=== PATIENT | male | born 2000 | race African-American/Black ===

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

== ENCOUNTER 2021-07-04 22:56 | Emergency (ER) | payer MEDICAID, OTHER ==
[2021-07-04] MEDS ORDERED: ACETAMINOPHEN 500 MG TAB (TYLENOL) PO ONE (23:15)
--- NOTE | 2021-07-04 23:19 | ED General ---
General Chief Complaint: Cough/Cold/Flu Symptoms Stated Complaint: HEADACHE/CHILLS/HIGH FEVER Nursing Triage Note: Pt complaining of a headache, chills and sore throat that started this morning. Source of Information: Patient Exam Limitations: No Limitations History of Present Illness Date Seen by Provider: Jul 04, 2021 Time Seen by Provider: 23:00 Initial Comments Healthy 20-year-old male coming into the ER due to 1 day of chills, sore throat, and headache. Sore throat is mild, constant, scratchy, and nothing seems to make it better or worse. He has not taken any medications such as ibuprofen or Tylenol. He says his friend just tested positive for Covid. He was in a car with him all the way to [place] just a couple days ago going to the [employer]. Denies any chest pain, shortness of breath, abdominal pain, nausea, vomiting, diarrhea, rash, dysuria, or any other concerns. Allergies and Home Medications Allergies Coded Allergies: No Known Drug Allergies (Unverified , 11/13/18) Patient Home Medication List Home Medication List Reviewed: Yes Review of Systems Review of Systems Constitutional: chills, fever EENTM: No blurred vision Respiratory: No cough, No short of breath Cardiovascular: No chest pain Gastrointestinal: No abdominal pain, No diarrhea, No nausea, No vomiting Genitourinary: no symptoms reported Musculoskeletal: other (body aches) Skin: no symptoms reported Psychiatric/Neurological: No Symptoms Reported Hematologic/Lymphatic: No Symptoms Reported Immunological/Allergic: no symptoms reported All Other Systems Reviewed Negative Unless Noted: Yes Past Mknqjxc-Kighru-Wrivbd Hx Patient Social History Tobacco Use?: No Use of E-Cig and/or Vaping dev: Yes Substance use?: No Alcohol Use?: No Pt feels they are or have been: No Immunizations Up To Date Tetanus Booster (TDap): Less than 5yrs PED Vaccines UTD: Yes Seasonal Allergies Seasonal Allergies: No Past Medical History Surgeries: Yes Gallbladder Respiratory: Yes Asthma Cardiac: No Neurological: No Genitourinary: No Gastrointestinal: No Musculoskeletal: No Endocrine: No HEENT: No Cancer: No Psychosocial: No Integumentary: No Blood Disorders: No Physical Exam Vital Signs Vital Signs - First Documented 07/04/21 23:00 Temp 37.7 Pulse 114 Resp 18 B/P (MAP) 132/87 (102) Pulse Ox 99 O2 Delivery Room Air Capillary Refill : Less Than 3 Seconds Height, Weight, BMI Height: 5'10.00" Weight: 160lbs. oz. 72.365100ny; 21.09 BMI Method: General Appearance: No Apparent Distress, WD/WN Eyes: Bilateral Eye Normal Inspection, Bilateral Eye PERRL HEENT: PERRL/EOMI, TMs Normal, Normal ENT Inspection, Pharynx Normal Neck: Full Range of Motion, Normal Inspection, Non Tender, Supple Respiratory: Chest Non Tender, Lungs Clear, Normal Breath Sounds, No Accessory Muscle Use, No Respiratory Distress Cardiovascular: Regular Rate, Rhythm, No Edema, Normal Peripheral Pulses Gastrointestinal: Normal Bowel Sounds, Non Tender, Soft; No Distended, No Guarding Back: Normal Inspection, No CVA Tenderness, No Vertebral Tenderness Extremity: Normal Capillary Refill, Normal Inspection, Normal Range of Motion, Non Tender, No Calf Tenderness, No Pedal Edema Neurologic/Psychiatric: Alert, No Motor/Sensory Deficits, Normal Mood/Affect Skin: Normal Color, Warm/Dry Lymphatic: No Adenopathy Procedures/Interventions Suture Size: 4-0 Progress/Results/Core Measures Suspected Sepsis SIRS Temperature: Pulse: 114 Respiratory Rate: 18 Blood Pressure 132 /87 Mean: 102 Results/Orders Lab Results Laboratory Tests Test 07/04/21 23:15 Range/Units Influenza Type A Antigen NEGATIVE NEGATIVE Influenza Type B Antigen NEGATIVE NEGATIVE My Orders Orders - LEIZABETH DAVENPORT MD Influenza A & B Antigens (07/04/21 23:06) Covid 19 Inhouse Test (07/04/21 23:06) Acetaminophen Tablet (Tylenol Tablet) (07/04/21 23:15) Medications Given in ED Current Medications Medications Dose Ordered Sig/Mathew Route Start Time Stop Time Status Last Admin Dose Admin Acetaminophen 1,000 mg ONCE ONCE PO 07/04/21 23:15 07/04/21 23:16 DC 07/04/21 23:15 1,000 MG Vital Signs/I&O 07/04/21 23:00 Temp 37.7 Pulse 114 Resp 18 B/P (MAP) 132/87 (102) Pulse Ox 99 O2 Delivery Room Air Capillary Refill : Less Than 3 Seconds Blood Pressure Mean: 102 Progress Note : Progress Note 20-year-old male with above history coming in due to flulike symptoms. ABCs were intact and vitals are stable on presentation. His temperature is slightly elevated at 99.9 F, and I suspect he is about to run a fever. His lungs sound clear and overall he is very well-appearing. He was tested for influenza and COVID. Flu test is negative and COVID test is pending. He was given Tylenol for his chills. He is tolerating p.o. and I do not believe he requires any IV fluids at this time. No clinical concerns for pneumonia. He does not have any signs of strep throat clinically in his pharynx. I believe he is stable for discharge with outpatient follow-up. He was sent home with strict return precautions. Departure Impression Primary Impression: Person under investigation for COVID-19 Disposition: HOME, SELF-CARE Condition: Stable Departure-Patient Inst. Decision time for Depature: 23:30 Referrals: NO,LOCAL PHYSICIAN (PCP/Family) Primary Care Physician Patient Instructions: COVID-19 Overview Add. Discharge Instructions: You were seen in the emergency department for flulike symptoms after you were around a friend that had COVID. Your flu test is negative. Your Covid test will be back tomorrow. Take 1000 mg of Tylenol every 6-8 hours as needed for chills/fever. If you continue to have chills or fever after taking the Tylenol you can take ibuprofen 600 mg every 6 hours as well. Drink plenty of fluids with this and stay hydrated. This should also help with your sore throat. If you do develop a cough he can take [id number] cough medicine. Scripts Albuterol Sulfate (PROAIR HFA) 1 Puff Puff 2 PUFF IH Q4H PRN for WHEEZING for 30 Days, #8.5 GM 1 PUFF = 90 MCG Prov: ELIZABETH DAVENPORT MD 07/04/21 Work/School Note: School/Childcare Release, Date Seen in the Emergency Department: Jul 04, 2021 Time Dismissed from Emergency Department: 23:30 Return to School: Jul 06, 2021 Restrictions: Return-No Fever (24hrs) Work Release Form Date Seen in the Emergency Department: Jul 04, 2021 Return to Work: Jul 06, 2021 Restrictions: Return-No Fever (24hrs) ELIZABETH DAVENPORT MD Jul 04, 2021 23:19
[2021-07-04 23:38] VITALS: BP 132/87
[2021-07-04] MEDS ORDERED: RT-ALBUINH IH (23:42)
== END 2021-07-04 23:38 | disposition home or self-care (01) ==
LOC: EDUNIT# 22:56 → ER FS 23:00
DX: U07.1 COVID-19 (principal)
CPT/HCPCS: 87635; 87636; 87804; 99283